=== PATIENT | female | born 1990 | race Caucasian/White ===

== ENCOUNTER → 2017-04-20 | Outpatient (CLI) | payer MEDICAID | END | disposition home or self-care (01) | LOC: RAD 08:37 | PROVIDERS: ATTEND Nurse Practitioner | DX: R10.10 Upper abdominal pain, unspecified (principal) | CPT/HCPCS: 74241 ==

== ENCOUNTER 2017-06-09 18:49 | Emergency (ER) | payer MEDICAID ==
[~2017-06-09] VITALS: Ht 165.1 cm; Wt 121.5 kg
[2017-06-09 18:53] VITALS: BP 125/80
[2017-06-09 19:42] LABS: CLUE CELLS NONE SEEN (NONE SEEN); WET PREP WBCS FEW (FEW)
[2017-06-09 20:00] LABS: HCG UR SG 1.024 (1.003-1.030)
[2017-06-09 20:07] LABS: MICROSCOPIC INDICATED
[2017-06-09 20:08] LABS: CULTURE INDICATED? NO
[2017-06-09] MEDS ORDERED: AZITHROMYCIN 500 MG TABLET ONE (20:39)
[2017-06-09] MEDS ORDERED: CEFTRIAXONE 250 MG ONE (20:39)
[2017-06-09] MEDS ORDERED: CEFTRIAXONE 250 MG IM ONE (21:00)
[2017-06-09] MEDS ORDERED: AZITHROMYCIN 500 MG TABLET PO ONE (21:00)
== END 2017-06-09 21:05 | disposition home or self-care (01) ==
LOC: ED 20:00
DX: N76.0 Acute vaginitis (principal); Z90.49 Acquired absence of other specified parts of digestive tract
CPT/HCPCS: 81001; 81025; 87210; 87491; 87591; 87808; 96372; 99284; J0696